=== PATIENT | female | born 1980 | race Two or more races ===

== ENCOUNTER → 2016-07-31 | Outpatient (CLI) | payer BC | LOC: BMCIMAGING 11:35 | PROVIDERS: ATTEND Family Medicine | DX: R06.89 Other abnormalities of breathing (principal) ==

== ENCOUNTER → 2017-03-02 | Outpatient (CLI) | payer BC | LOC: FIMAGING 11:24 | PROVIDERS: ATTEND Obstetrics & Gynecology | DX: Z31.69 Encounter for other general counseling and advice on procreation (principal); Z87.59 Personal history of other complications of pregnancy, childbirth and the puerperium ==

== ENCOUNTER → 2017-06-10 | Outpatient (CLI) | payer BC | LOC: BMCIMAGING 09:17 | PROVIDERS: ATTEND Family Medicine | DX: J40 Bronchitis, not specified as acute or chronic (principal) ==

== ENCOUNTER → 2018-02-16 | Outpatient (CLI) | payer BC ==
[~2018-02-16] MED LIST: GADOBUTROL 10 ML VIAL IVP ONE
== END ==
LOC: FIMAGING 15:08
PROVIDERS: ATTEND Family Medicine
DX: R42 Dizziness and giddiness (principal)
CPT/HCPCS: A9585

== ENCOUNTER 2018-09-06 15:33 | Emergency (ER) | payer BC | END 2018-09-06 18:25 | disposition home or self-care (01) ==